=== PATIENT | male | born 1945 | race Caucasian/White ===

== ENCOUNTER 2016-11-01 16:27 | Inpatient (IN) | payer MEDICARE, OTHER ==
[~2016-11-01] VITALS: Ht 182.9 cm; Wt 131.5 kg
[2016-11-01 18:51] LABS: HEMOGLOBIN 13.7 gm/dl (14.0-17.5); RED BLOOD COUNT 4.57 M/UL (4.20-5.50); WHITE BLOOD COUNT 8.6 K/UL (4.5-11.0)
[2016-11-02 07:46] LABS: HEMOGLOBIN 13.8 gm/dl (14.0-17.5); RED BLOOD COUNT 4.68 M/UL (4.20-5.50); WHITE BLOOD COUNT 7.5 K/UL (4.5-11.0)
[2016-11-02] MEDS ORDERED: GLUCOTROL XL10 MG PO (10:44)
[2016-11-02] MEDS ORDERED: ZESTRIL 40 MG T40 MG PO (10:45)
[2016-11-02] MEDS ORDERED: SYNTHROID25 MCG PO (10:45)
[2016-11-02] MEDS ORDERED: LOPRESSOR 25 MG25 MG PO (10:46)
[2016-11-02] MEDS ORDERED: MOBIC7.5 MG PO (10:46)
[2016-11-02] MEDS ORDERED: NOVOLIN 70100 UNIT/1 SQ (10:48)
[2016-11-03 05:39] LABS: RED BLOOD COUNT 4.34 M/UL (4.20-5.50)
[2016-11-03 05:41] LABS: WHITE BLOOD COUNT 5.5 K/UL (4.5-11.0)
[2016-11-05] MEDS ORDERED: TAMIFLU75 MG PO ×2 (17:59→18:05)
[2016-11-05] MEDS ORDERED: CATAPRES 0.1MG0.1 MG PO (18:04)
[2016-11-05] MEDS ORDERED: HYDRALAZINE HCL25 MG PO (18:04)
[2016-11-05] MEDS ORDERED: ASPIR 8181 MG PO (18:05)
== END 2016-11-05 18:26 | disposition home or self-care (01) | DRG 683 ==
LOC: ER1 16:27 → MED SURG 4 22:30 → ZEROF 22:30 → MED SURG 4 11-02 08:22
PROVIDERS: Emergency Medicine; Family Medicine; Internal Medicine Infectious Disease; ADMIT Internal Medicine
DX: I12.9 Hypertensive chronic kidney disease with stage 1 through stage 4 chronic kidney disease, or unspecified chronic kidney disease (principal); I16.1 Hypertensive emergency; N17.9 Acute kidney failure, unspecified; I24.8 Other forms of acute ischemic heart disease; J10.1 Influenza due to other identified influenza virus with other respiratory manifestations; T79.6XXA Traumatic ischemia of muscle, initial encounter; I25.10 Atherosclerotic heart disease of native coronary artery without angina pectoris; R07.9 Chest pain, unspecified; E11.22 Type 2 diabetes mellitus with diabetic chronic kidney disease; N18.3 Chronic kidney disease, stage 3 (moderate); E11.65 Type 2 diabetes mellitus with hyperglycemia; W18.30XA Fall on same level, unspecified, initial encounter; Z91.81 History of falling; E03.9 Hypothyroidism, unspecified; E66.01 Morbid (severe) obesity due to excess calories; Z68.39 Body mass index [BMI] 39.0-39.9, adult; Z79.4 Long term (current) use of insulin; Z79.84 Long term (current) use of oral hypoglycemic drugs; Z82.49 Family history of ischemic heart disease and other diseases of the circulatory system
CPT/HCPCS: ECHO; 36415; 70450; 71010; 71020; 72125; 72170; 78452; 80053; 80202; 81001; 82550; 82553; 82962; 83036; 83605; 83690; 83874; 83880; 84439; 84443; 84484; 85025; 85610; 85730; 87040; 87077; 87086; 87186; 93005; 93017; 93306; 96374; 96375; 97110; 97116; 97530; 99285; A9502; J0360; J1650; J1940; J1956; J2785; J3370; J7070